=== PATIENT | female | born 1955 | race African-American/Black ===

== ENCOUNTER → 2017-05-01 | Outpatient (CLI) | payer BC ==
[~2017-05-01] MED LIST: ASPI-482 PO; ATORVASTATIN CA80 MG PO; CARV3.122 PO; FAMO20TA38 PO; LISI10TA2 PO; MULT1TAB97 PO; OMEG500C PO
--- NOTE | 2017-05-01 12:40 | RAD ---
APPROVED REPORT Test Type: Pharmacological Stress Nurse/Tech: LUCY CABA Test Indications: DOT PHYSICAL Cardiac History: HTN, CARDIAC STENT 2012, HIGH CHOLESTEROL, SEE EHR Medications: SEE EHR Medical History: REMOTE SMOKING HISTORY Resting ECG: NONE STATED, SEE EHR Resting Heart Rate: 79 bpm Resting Blood Pressure: 154/96mmHg Pretest Chest Pain: No chest pain Nurse/Tech Notes LUNG SOUNDS CLEAR, S1S2 WNL. Consent: The procedure was explained to the patient in lay terms. Informed consent was witnessed. Bruce eout was entered into [facility]. History and Stress Test performed by ANALI Humphries Stress Symptoms PT ABLE TO REACH GOAL AT BRISK WALK WITHOUT SOA OR FATIGUE. POST EXERCISE Reason for Termination: Reached target heart rate Target HR: Yes Max HR: 140 bpm 146% of Maximum Predicted HR: 100 bpm Exercise duration: 9:00 min:sec, 3 Stage Exercise capacity: 10.0METs Max Blood Pressure: 193/91mmHg Blood Pressure response to exercise: Normal blood pressure response during stress. Heart Rate response to exercise: WNL Chest Pain: No. Arrhythmia: No. ST Change: No. INTERPRETATION Stress EKG Conclusion: Negative sterss EKG. Other Information Overall Exercise Capacity: Good Risk Assessment: Low Risk Conclusion 1. Normal exercise capacity at 10.0 Mets 2. Normal EKG at rest. 3. Exercise EKG is negative for ischemia. 4. Low risk study
== END | disposition home or self-care (01) ==
LOC: NM 09:28
PROVIDERS: ATTEND Internal Medicine Cardiovascular Disease
DX: I25.10 Atherosclerotic heart disease of native coronary artery without angina pectoris (principal); E78.00 Pure hypercholesterolemia, unspecified
CPT/HCPCS: 93017